=== PATIENT | male | born 1935 | race Hispanic/Latino ===

== ENCOUNTER → 2020-02-29 | Outpatient (CLI) | payer MEDICARE ==
[~2020-02-29] VITALS: Ht 165.1 cm; Wt 66.0 kg
[~2020-02-29] MED LIST: ALPR0.25 PO; CEFTRIAXONE SODIUM 1 GM IVP SCH; FINA5TAB41 PO; LEVO50TA11 PO; PRAV10TA39 PO; SERT50TA PO; TAMS-1 PO
[2020-02-29 14:14] LABS: BASOPHILS % (AUTO) 0.4 % (0.0-5.0); EOSINOPHILS % (AUTO) 0.9 % (0.0-8.0); HEMATOCRIT 40.7 % (42-54); LYMPHOCYTES % (AUTO) 29.8 % (21.0-51.0); MEAN CORPUSCULAR HEMOGLOBIN 30.7 pg (27.0-33.0); MEAN CORPUSCULAR HGB CONC 34.9 g/dL (32.0-36.0); MEAN CORPUSCULAR VOLUME 87.9 fL (79-99); MONOCYTES % (AUTO) 6.5 % (3.0-13.0); NEUTROPHILS % (AUTO) 62.1 % (40.0-77.0); PLATELET COUNT (AUTO) 338 K/uL (130-400); RED BLOOD CELL COUNT(AUTO) 4.63 MIL/uL (4.50-6.20); RED CELL DISTRIBUTION WIDTH 13.3 % (11.0-15.5); WHITE BLOOD COUNT (AUTO) 6.9 K/uL (4.8-10.8)
[2020-02-29 14:33] LABS: INR 0.99 (0.85-1.15); PARTIAL THROMBOPLASTIN TIME 30.8 SEC (26.3-35.5); PROTHROMBIN TIME 10.7 SEC (9.6-11.6)
[2020-02-29 14:35] LABS: APPEARANCE,URINE Clear (CLEAR); BILIRUBIN,URINE Negative (NEGATIVE); COLOR,URINE Yellow (YELLOW); GLUCOSE, URINE (UA) Negative (NEGATIVE); KETONES,URINE Trace mg/dL (NEGATIVE); LEUKOCYTE ESTERASE ,URINE Small (NEGATIVE); NITRATE,URINE Negative (NEGATIVE); OCCULT BLOOD,URINE Negative (NEGATIVE); PROTEIN,URINE Negative (NEGATIVE)
[2020-02-29 15:02] LABS: CREATININE 0.8 mg/dL (0.5-1.5); POTASSIUM 3.9 mmol/L (3.5-5.1)
[2020-02-29 15:08] LABS: BACTERIA,URINE Many /HPF (None Seen)
[2020-02-29 15:09] LABS: MUCUS,URINE Few LPF (None Seen); SQUAMOUS EPITHELIAL CELL,UR Few /HPF (0-2)
--- NOTE | 2020-03-05 10:30 | NUR ---
REPORT CALLED [facility] WITH DR PATRICIA AND INFORMED OF ABNORMAL URINE AND CULTURE. PT WAS STARTED ON L[facility]IN SO MD WILL PROCEED WITH SURGERY
--- NOTE | 2020-03-05 10:33 | NUR ---
RE: ABNORMAL URINE CULTURE FAXED URINALYSIS AND CULTURE SUSCEPTIBILITIES REPORT TO DR PATRICIA'S OFFICE FOR REVIEW, WILL WAIT FOR ANY NEW ORDERS/RESPONSE FROM DR PATRICIA.
[2020-03-05 11:08] VITALS: BP 108/66
--- NOTE | 2020-03-05 14:06 | NUR ---
RE: ABNORMAL EKG REPORTED EKG TO DR LEW, NO NEW ORDERS RECEIVED. MAY PROCEED WITH SCHEDULED PROCEDURE.
== END ==
LOC: DAH 10:00 → EDSTATUS 12:00
PROVIDERS: ATTEND Urology
DX: Z01.818 Encounter for other preprocedural examination (principal); N40.1 Benign prostatic hyperplasia with lower urinary tract symptoms; Z11.59 Encounter for screening for other viral diseases; I45.10 Unspecified right bundle-branch block; Z79.01 Long term (current) use of anticoagulants
CPT/HCPCS: 36415; 71045; 80048; 81001; 85025; 85610; 85730; 87077; 87088; 87186; 93005; A6260; U0003

== ENCOUNTER 2020-04-24 07:35 | Day surgery (SDC) | payer MEDICARE ==
[2020-04-18 12:09] LABS: BASOPHILS % (AUTO) 0.5 % (0.0-5.0); EOSINOPHILS % (AUTO) 1.9 % (0.0-8.0); HEMATOCRIT 43.7 % (42-54); LYMPHOCYTES % (AUTO) 26.3 % (21.0-51.0); MEAN CORPUSCULAR HGB CONC 35.2 g/dL (32.0-36.0); MEAN CORPUSCULAR VOLUME 87.9 fL (79-99); PLATELET COUNT (AUTO) 381 K/uL (130-400); RED BLOOD CELL COUNT(AUTO) 4.97 MIL/uL (4.50-6.20); RED CELL DISTRIBUTION WIDTH 13.2 % (11.0-15.5); WHITE BLOOD COUNT (AUTO) 6.5 K/uL (4.8-10.8)
[2020-04-18 12:23] LABS: CREATININE 0.9 mg/dL (0.5-1.5); POTASSIUM 4.5 mmol/L (3.5-5.1)
[2020-04-18 12:25] LABS: INR 0.94 (0.85-1.15); PARTIAL THROMBOPLASTIN TIME 30.6 SEC (26.3-35.5); PROTHROMBIN TIME 10.2 SEC (9.6-11.6)
[2020-04-18 13:33] LABS: APPEARANCE,URINE Cloudy (CLEAR); BILIRUBIN,URINE Negative (NEGATIVE); COLOR,URINE Yellow (YELLOW); GLUCOSE, URINE (UA) Negative (NEGATIVE); KETONES,URINE Negative (NEGATIVE); LEUKOCYTE ESTERASE ,URINE Small (NEGATIVE); NITRATE,URINE Negative (NEGATIVE); OCCULT BLOOD,URINE Negative (NEGATIVE); PH,URINE 7.5 (5.0-8.0); PROTEIN,URINE Negative (NEGATIVE)
[2020-04-18 13:38] LABS: AMORPHOUS SEDIMENT,UR Moderate /LPF (None Seen); BACTERIA,URINE Few /HPF (None Seen); RBC,URINE 0-1 /HPF (0-1); SQUAMOUS EPITHELIAL CELL,UR Rare /HPF (0-2); WBC,URINE 0-1 /HPF (0-1)
[2020-04-23 12:16] VITALS: BP 102/67
[~2020-04-24] VITALS: Ht 167.6 cm; Wt 62.3 kg
[2020-04-24] VITALS (22 sets, daily range): BP systolic 131–152; BP diastolic 37–72
[~2020-04-24 07:35] MED LIST changes: +GENTAMICIN SULFATE 320 MG in SODIUM CHLORIDE 0.9% 100 ML IV SCH; -SERT50TA PO
--- NOTE | 2020-04-24 08:10 | NUR ---
PREOP PT ARRIVED VIA W/C WITH DAUGHTER AT SIDE. PT IN NO DISTRESS. PT AND FAMILY ORIENTED TO ROOM AND CALL LIGHT. WILL CONTINUE TO MONITOR PT.
[2020-04-24] MEDS ORDERED: GENTAMICIN 80 MG/NS 100 ML PB 0 ML IV ONE (08:35)
[2020-04-24] MEDS ORDERED: LACTATED RINGERS 1000ML 1,000 ML IV ONE (08:37)
[2020-04-24] MEDS ORDERED: LIDOCAINE PF 2% 5ML ABBOJECT ONE (09:19)
[2020-04-24] MEDS ORDERED: ONDANSETRON HCL 4 MG/2 ML VIAL ONE (09:19)
[2020-04-24] MEDS ORDERED: PROPOFOL 10 MG/ML 20ML VIAL IV ONE (09:19)
[2020-04-24] MEDS ORDERED: DEXAMETHASONE SOD PHOSPHATE 10MG/ML 1ML VIAL ONE (09:19)
[2020-04-24] MEDS ORDERED: MIDAZOLAM HCL 1 MG/ML 2ML VIAL ONE (09:19)
[2020-04-24] MEDS ORDERED: SUCCINYLCHOLINE 200MG/10ML SYR ONE (09:19)
[2020-04-24] MEDS ORDERED: FENTANYL CITRATE PF 50 MCG/1 ML 2ML VIAL ONE (09:19)
[2020-04-24] MEDS ORDERED: LEVAQUIN PO (09:25)
[2020-04-24] MEDS ORDERED: DONE10TA43 PO (09:25)
[2020-04-24] MEDS ORDERED: ROCURONIUM 10MG/1ML SYR 10 MG/ML ML ONE (09:29)
--- NOTE | 2020-04-24 09:32 | NUR ---
REPORT HANDED OFF CARE TO YENNIFER SILVER RN FROM [facility] WITH [facility] Addendum: 04/24/20 at 0933 by ROSEMARIE VALDEZ RN RN WRONG PT CHARTING
--- NOTE | 2020-04-24 09:33 | NUR ---
REPORT HANDED OFF CARE TO YENNIFER SILVER RN FROM [facility] Addendum: 04/24/20 at 0935 by ROSEMARIE VALDEZ RN RN WRONG PT
[2020-04-24] MEDS ORDERED: EPHEDRINE SULFATE 50 MG/ML AMPULE ONE (09:36)
[2020-04-24] MEDS ORDERED: GLYCOPYRROLATE 1 MG/5 ML SYRINGE ONE (09:41)
[2020-04-24] MEDS ORDERED: NEOSTIGMINE 5MG/5ML SYR IV ONE (10:35)
--- NOTE | 2020-04-24 12:05 | NUR ---
ASSESSMENT RECEIVED PT ROM PACU TATIANA DE OLIVEIRA. PT [id number]. DAUGHTER AT BEDSIDE. PT HAS DEMENTIA. 20 FR ROCHA CATH DRAINING TO GRAVITY AT BEDSIDE WITH 300ML OF CLEAR YELLOW URINE. PT DENIES ANY DISCOMFORT AT THIS TIME.
--- NOTE | 2020-04-24 12:50 | NUR ---
EDUCATION PTS DAUGHTER INSTRUCTED ON CHANGING ROCHA BAG TO LEG BAG USING ASEPTIC TECHNIQUE. PT'S DAUGHTER VERBALIZED UNDERSTANDING. INSTRUCTED ON IMPORTANCE OF KEEPING ASEPTIC TECHNIQUE. PTS DAUGHTER VERBALIZED UNDERSTANDING. PRESCRIPTION GIVEN TO DAUGHTER.
== END 2020-04-24 12:55 | disposition home or self-care (01) ==
LOC: DAH 07:35
PROVIDERS: ATTEND Urology
DX: N40.1 Benign prostatic hyperplasia with lower urinary tract symptoms (principal); N39.0 Urinary tract infection, site not specified; Z79.899 Other long term (current) drug therapy; Z20.828 Contact with and (suspected) exposure to other viral communicable diseases; Z79.01 Long term (current) use of anticoagulants
CPT/HCPCS: 36415; 52648; 71045; 80048; 81001; 85025; 85610; 85730; 87077; 87088; 87186; 93005; A4213; A4215; A4221; A4222; A4223; A4335; A4354; A4358 ×2; A4600; A4663; A6260; C9803; J0330; J0696; J1100; J1580; J2001; J2250; J2405; J2704; J2710; J3010; J3490 ×2; J7030 ×2; J7120 ×2; U0003

== ENCOUNTER → 2020-05-22 | Outpatient (CLI) | payer MEDICARE ==
[~2020-05-22] MED LIST changes: -CEFTRIAXONE SODIUM 1 GM IVP SCH; +DONE10TA43 PO; -GENTAMICIN SULFATE 320 MG in SODIUM CHLORIDE 0.9% 100 ML IV SCH; +LEVAQUIN PO
== END | disposition home or self-care (01) ==
LOC: LAB 10:55
PROVIDERS: ATTEND Internal Medicine Gastroenterology
DX: R10.10 Upper abdominal pain, unspecified (principal); R63.4 Abnormal weight loss
CPT/HCPCS: 36415; 80053; 85025

== ENCOUNTER 2020-07-13 09:05 | Emergency (ER) | payer MEDICARE ==
[2020-07-13 09:59] LABS: BASOPHILS % (AUTO) 0.3 % (0.0-5.0); HEMATOCRIT 32.3 % (42-54); LYMPHOCYTES % (AUTO) 8.2 % (21.0-51.0); MEAN CORPUSCULAR HEMOGLOBIN 30.4 pg (27.0-33.0); MEAN CORPUSCULAR VOLUME 86.8 fL (79-99); NEUTROPHILS % (AUTO) 78.3 % (40.0-77.0); PLATELET COUNT (AUTO) 374 K/uL (130-400); RED BLOOD CELL COUNT(AUTO) 3.72 MIL/uL (4.50-6.20); RED CELL DISTRIBUTION WIDTH 13.1 % (11.0-15.5); WHITE BLOOD COUNT (AUTO) 10.1 K/uL (4.8-10.8)
[2020-07-13 10:06] LABS: CREATININE 0.8 mg/dL (0.5-1.5); POTASSIUM 3.6 mmol/L (3.5-5.1)
[2020-07-13] MEDS ORDERED: LACTATED RINGERS 1000ML 1,000 ML IV ONE (10:31)
[2020-07-13 10:38] LABS: APPEARANCE,URINE Clear (CLEAR); BILIRUBIN,URINE Small (NEGATIVE); COLOR,URINE Dark Yellow (YELLOW); GLUCOSE, URINE (UA) 500 mg/dL (NEGATIVE); KETONES,URINE Negative (NEGATIVE); LEUKOCYTE ESTERASE ,URINE Moderate (NEGATIVE); NITRATE,URINE Negative (NEGATIVE); OCCULT BLOOD,URINE Moderate (NEGATIVE); PROTEIN,URINE POS 2+ mg/dL (NEGATIVE)
[2020-07-13 10:50] LABS: BACTERIA,URINE Rare /HPF (None Seen); RBC,URINE 26-50 /HPF (0-1); SQUAMOUS EPITHELIAL CELL,UR 0-2 /HPF (0-2); WBC,URINE 51-100 /HPF (0-1)
[2020-07-13] MEDS ORDERED: LEVOFLOXACIN 500 MG TABLET ONE (11:29)
[2020-07-13] MEDS ORDERED: CEFTRIAXONE SODIUM 1 GM ONE (11:30)
== END 2020-07-13 13:00 | disposition home or self-care (01) ==
LOC: EDH 09:05
DX: N39.0 Urinary tract infection, site not specified (principal); T83.098A Other mechanical complication of other urinary catheter, initial encounter; E86.0 Dehydration; E46 Unspecified protein-calorie malnutrition; G30.9 Alzheimer's disease, unspecified; F02.80 Dementia in other diseases classified elsewhere, unspecified severity, without behavioral disturbance, psychotic disturbance, mood disturbance, and anxiety
CPT/HCPCS: 36415; 80048; 81001; 85025; 87088; 96361; 96374; 99283; J0696; J7120

== ENCOUNTER 2024-04-10 15:56 | Inpatient (IN) | payer MEDICARE ==
[~2024-04-10] VITALS: Ht 160 cm; Wt 69.1 kg
[2024-04-10] MEDS: ketOROlac 30MG VIAL (30MG/ML) IVP ONE (17:25)
[2024-04-10] MEDS: teTANUS/diphthERIA TOXOID [ADULT] 0.5 ML VIAL IM ONE (17:30)
[2024-04-10 17:37] LABS: BASOPHILS # (AUTO) 0.02 K/uL (0.00-0.20); BASOPHILS % (AUTO) 0.2 % (0.0-5.0); EOSINOPHILS # (AUTO) 0.02 K/uL (0.00-0.70); EOSINOPHILS % (AUTO) 0.2 % (0.0-8.0); HEMATOCRIT 36.1 % (42-54); IMMATURE GRANULOCYTE ABSOLUTE 0.04 K/uL (0-1); LYMPHOCYTES # (AUTO) 1.1 K/uL (1.0-4.8); LYMPHOCYTES % (AUTO) 9.1 % (21.0-51.0); MEAN CORPUSCULAR HEMOGLOBIN 31.6 pg (27.0-33.0); MEAN CORPUSCULAR VOLUME 87.6 fL (79-99); MONOCYTES # (AUTO) 0.6 K/uL (0.1-1.0); MONOCYTES % (AUTO) 5.2 % (3.0-13.0); NEUTROPHILS # (AUTO) 10.4 K/uL (1.8-7.7); PLATELET COUNT (AUTO) 303 K/uL (130-400); RED BLOOD CELL COUNT(AUTO) 4.12 MIL/uL (4.50-6.20); RED CELL DISTRIBUTION WIDTH 13.7 % (11.0-15.5); WHITE BLOOD COUNT (AUTO) 12.3 K/uL (4.8-10.8)
[2024-04-10 17:42] LABS: CREATININE 0.8 mg/dL (0.5-1.3)
[2024-04-10 17:51] LABS: ALBUMIN 3.9 g/dL (3.5-5.0); BILIRUBIN,TOTAL 1.1 mg/dL (0.2-1.0); TOTAL PROTEIN, SERUM 7.3 g/dL (6.0-8.3)
[2024-04-10 17:53] LABS: INR 1.06 (0.85-1.15); PROTHROMBIN TIME 11.4 SEC (9.6-11.6)
[2024-04-10 17:54] LABS: PARTIAL THROMBOPLASTIN TIME 26.5 SEC (26.3-35.5)
[2024-04-10] MEDS ORDERED: HEParin 5,000 UNIT VIAL SQ SCH (18:00)
[2024-04-10] MEDS: 1/2 NS 1000ML 1,000 ML IV SCH (18:55)
[2024-04-10] MEDS: hydroMORPHone 0.5 MG SYG (0.5MG/0.5ML) IVP PRN (19:49)
[2024-04-10] MEDS: ONDANSETRON 4MG INJ IVP PRN (19:49)
[2024-04-10 21:40] VITALS: BP 149/67; PULSE 72; RESP 22; TEMP 97.9; O2SAT 96
[2024-04-10] MEDS ORDERED: ALPR0.5T8 PO (22:03)
[2024-04-10] MEDS ORDERED: TUME1CAP PO (22:03)
[2024-04-10] MEDS ORDERED: ASHW500C PO (22:03)
[2024-04-10] MEDS ORDERED: [UNRECOGNIZED DRUG - OTHER] PO (22:03)
[2024-04-10] MEDS ORDERED: LEVO88TA7 PO (22:03)
[2024-04-10 22:46] LABS: APPEARANCE,URINE CLEAR (CLEAR); BILIRUBIN,URINE NEGATIVE (NEGATIVE); COLOR,URINE YELLOW (YELLOW); GLUCOSE, URINE (UA) NEGATIVE (NEGATIVE); KETONES,URINE 5 mg/dL (NEGATIVE); LEUKOCYTE ESTERASE ,URINE NEGATIVE Leu/uL (NEGATIVE); NITRATE,URINE NEGATIVE (NEGATIVE); OCCULT BLOOD,URINE NEGATIVE (NEGATIVE); PROTEIN,URINE NEGATIVE (NEGATIVE); UROBILINOGEN,URINE 0.2 mg/dL (0.2-1.0)
[2024-04-10 22:54] LABS: ADD UA MICROSCOPIC YES
[2024-04-10 22:58] LABS: WBC,URINE 0-1 /HPF (0-1)
[2024-04-10 22:59] LABS: BACTERIA,URINE None Seen /HPF (None Seen); MUCUS,URINE Rare LPF (None Seen); SQUAMOUS EPITHELIAL CELL,UR Rare /HPF (0-2)
[2024-04-11] VITALS (25 sets, daily range): BP systolic 107–143; BP diastolic 39–75; PULSE 60–77; RESP 15–20; TEMP 97.2–98.7; O2SAT 98–99
[2024-04-11 05:38] LABS: BASOPHILS # (AUTO) 0.02 K/uL (0.00-0.20); BASOPHILS % (AUTO) 0.2 % (0.0-5.0); EOSINOPHILS # (AUTO) 0.07 K/uL (0.00-0.70); EOSINOPHILS % (AUTO) 0.9 % (0.0-8.0); HEMATOCRIT 32.4 % (42-54); IMMATURE GRANULOCYTE ABSOLUTE 0.02 K/uL (0-1); LYMPHOCYTES # (AUTO) 0.9 K/uL (1.0-4.8); LYMPHOCYTES % (AUTO) 11.3 % (21.0-51.0); MEAN CORPUSCULAR HEMOGLOBIN 31.1 pg (27.0-33.0); MEAN CORPUSCULAR HGB CONC 35.2 g/dL (32.0-36.0); MEAN CORPUSCULAR VOLUME 88.3 fL (79-99); MONOCYTES # (AUTO) 0.8 K/uL (0.1-1.0); MONOCYTES % (AUTO) 9.8 % (3.0-13.0); NEUTROPHILS # (AUTO) 6.2 K/uL (1.8-7.7); NEUTROPHILS % (AUTO) 77.6 % (40.0-77.0); PLATELET COUNT (AUTO) 240 K/uL (130-400); RED BLOOD CELL COUNT(AUTO) 3.67 MIL/uL (4.50-6.20); RED CELL DISTRIBUTION WIDTH 13.5 % (11.0-15.5); WHITE BLOOD COUNT (AUTO) 8.1 K/uL (4.8-10.8)
[2024-04-11 05:54] LABS: ALBUMIN 3.2 g/dL (3.5-5.0); BILIRUBIN,TOTAL 1.5 mg/dL (0.2-1.0); CREATININE 0.8 mg/dL (0.5-1.3); POTASSIUM 3.7 mmol/L (3.5-5.1); TOTAL PROTEIN, SERUM 6.2 g/dL (6.0-8.3)
[2024-04-11] MEDS: POTASSIUM CHLORIDE 20MEQ/100ML 100 ML IV PRN (07:31)
[2024-04-11] MEDS ORDERED: dexaMETHasone SOD PHOSPHATE 10MG/ML 1ML VIAL ONE (10:56)
[2024-04-11] MEDS ORDERED: ONDANSETRON 4MG INJ ONE (10:56)
[2024-04-11] MEDS ORDERED: LIDOCAINE PF 100MG/5ML (2%) SYRINGE 5ML ONE (10:56)
[2024-04-11] MEDS ORDERED: FENTanyl CITRate PF 50 MCG/1 ML 2ML VIAL ONE (10:57)
[2024-04-11] MEDS ORDERED: proPOFol 10 MG/ML 20ML VIAL IV ONE (10:57)
[2024-04-11] MEDS ORDERED: rocuRONium bROMide 10MG/1ML 5ML VL ONE (10:57)
[2024-04-11] MEDS ORDERED: GLYCOPYRROLATE 0.2 MG/ML 5 ML VIAL ONE (10:57)
[2024-04-11] MEDS ORDERED: ePHEDrine SULFate 50 MG/ML AMPULE ONE (11:00)
[2024-04-11] MEDS ORDERED: TRANEXAMIC ACID 1000MG/10ML ONE (11:02)
[2024-04-11] MEDS ORDERED: ALBUMIN (HUMAN) 5% 250 ML IV ONE (11:06)
[2024-04-11] MEDS ORDERED: ROPivacaine 0.5% 5MG/ML 30ML ONE (11:06)
[2024-04-11] MEDS: ceFAZolin SODIUM 2 GM VIAL ONE (11:40)
[2024-04-11] MEDS: LACTATED RINGERS 1000ML 1,000 ML IV ONE (11:40)
[2024-04-11] MEDS: ceFAZolin SODIUM 2 GM VIAL IVPB ONE ×2 (12:00→19:24)
[2024-04-11] MEDS ORDERED: POTASSIUM CHLORIDE 20MEQ/100ML 100 ML IV PRN (14:00)
[2024-04-11] MEDS ORDERED: POTASSIUM CHLORIDE 10% ELIXIR 20 MEQ/15 ML UDCUP PO PRN (14:00)
[2024-04-11] MEDS ORDERED: CALCIUM CARB 500MG PO PRN (14:00)
[2024-04-11] MEDS ORDERED: FERROUS FUMARATE 324 MG TABLET PO PRN (14:00)
[2024-04-11] MEDS ORDERED: KCL 20 MEQ ERTAB PO PRN (14:00)
[2024-04-11] MEDS: acetaMINOPHEN 1,000 MG/100 ML VIAL IV ONE (14:38)
[2024-04-11] MEDS: ceFAZolin SODIUM 2 GM VIAL IVPB SCH (14:44)
[2024-04-11] MEDS: 0.9%NACL 1000ML 1,000 ML IV SCH (14:44)
[2024-04-11] MEDS: ketOROlac 15MG/ML VIAL (15MG/ML) IV PRN (14:52)
[2024-04-11] MEDS: KCL 20 MEQ ERTAB PO PRN (17:08)
[2024-04-11] MEDS: traMADol HCL 50 MG TABLET PO PRN (17:09)
[2024-04-12] VITALS (7 sets, daily range): BP systolic 104–136; BP diastolic 40–62; PULSE 64–77; RESP 16–19; TEMP 98.1–98.5; O2SAT 97–98
[2024-04-12] MEDS: HALOPERIDOL INJ 5 MG/ML VIAL IV ONE (02:18)
[2024-04-12] MEDS: HALOPERIDOL INJ 5 MG/ML VIAL IM ONE (02:18)
[2024-04-12] MEDS: ceFAZolin SODIUM 2 GM VIAL IVPB SCH (03:24)
[2024-04-12 03:52] LABS: BASOPHILS # (AUTO) 0.01 K/uL (0.00-0.20); BASOPHILS % (AUTO) 0.1 % (0.0-5.0); HEMATOCRIT 31.2 % (42-54); IMMATURE GRANULOCYTE ABSOLUTE 0.04 K/uL (0-1); LYMPHOCYTES % (AUTO) 8.3 % (21.0-51.0); MEAN CORPUSCULAR HEMOGLOBIN 31.3 pg (27.0-33.0); MEAN CORPUSCULAR HGB CONC 35.3 g/dL (32.0-36.0); MEAN CORPUSCULAR VOLUME 88.6 fL (79-99); MONOCYTES % (AUTO) 8.8 % (3.0-13.0); NEUTROPHILS # (AUTO) 9.7 K/uL (1.8-7.7); NEUTROPHILS % (AUTO) 82.5 % (40.0-77.0); PLATELET COUNT (AUTO) 242 K/uL (130-400); RED BLOOD CELL COUNT(AUTO) 3.52 MIL/uL (4.50-6.20); RED CELL DISTRIBUTION WIDTH 13.3 % (11.0-15.5); WHITE BLOOD COUNT (AUTO) 11.8 K/uL (4.8-10.8)
[2024-04-12 04:08] LABS: INR 1.09 (0.85-1.15); PROTHROMBIN TIME 11.7 SEC (9.6-11.6)
[2024-04-12 04:14] LABS: ALBUMIN 3.2 g/dL (3.5-5.0); CREATININE 0.9 mg/dL (0.5-1.3); POTASSIUM 3.9 mmol/L (3.5-5.1); TOTAL PROTEIN, SERUM 6.3 g/dL (6.0-8.3)
[2024-04-12] MEDS: polyETHYLene GLYCol 3350 17 GM POWD.PACK PO SCH (08:41)
[2024-04-12] MEDS: ASPIRIN 325MG EC TAB PO SCH (08:41)
[2024-04-12] MEDS: PSYLLIUM SEED 1 EACH PACKET PO SCH (12:35)
[2024-04-12] MEDS: oLANZapine 5 MG TAB PO SCH (20:00)
[2024-04-13] VITALS (12 sets, daily range): BP systolic 76–134; BP diastolic 45–65; PULSE 70–91; RESP 16–18; TEMP 98–99.9; O2SAT 98
[2024-04-13 05:15] LABS: BASOPHILS # (AUTO) 0.03 K/uL (0.00-0.20); BASOPHILS % (AUTO) 0.2 % (0.0-5.0); EOSINOPHILS # (AUTO) 0.03 K/uL (0.00-0.70); EOSINOPHILS % (AUTO) 0.2 % (0.0-8.0); HEMATOCRIT 31.8 % (42-54); IMMATURE GRANULOCYTE ABSOLUTE 0.05 K/uL (0-1); LYMPHOCYTES # (AUTO) 0.9 K/uL (1.0-4.8); LYMPHOCYTES % (AUTO) 7.5 % (21.0-51.0); MEAN CORPUSCULAR HEMOGLOBIN 31.4 pg (27.0-33.0); MEAN CORPUSCULAR HGB CONC 35.2 g/dL (32.0-36.0); MEAN CORPUSCULAR VOLUME 89.1 fL (79-99); MONOCYTES % (AUTO) 8.2 % (3.0-13.0); NEUTROPHILS # (AUTO) 10.2 K/uL (1.8-7.7); NEUTROPHILS % (AUTO) 83.5 % (40.0-77.0); PLATELET COUNT (AUTO) 236 K/uL (130-400); RED BLOOD CELL COUNT(AUTO) 3.57 MIL/uL (4.50-6.20); RED CELL DISTRIBUTION WIDTH 13.7 % (11.0-15.5); WHITE BLOOD COUNT (AUTO) 12.3 K/uL (4.8-10.8)
[2024-04-13 05:29] LABS: INR 1.03 (0.85-1.15); PROTHROMBIN TIME 11.1 SEC (9.6-11.6)
[2024-04-13 05:46] LABS: CREATININE 0.8 mg/dL (0.5-1.3); POTASSIUM 3.5 mmol/L (3.5-5.1); TOTAL PROTEIN, SERUM 6.2 g/dL (6.0-8.3)
[2024-04-13] MEDS: PHENAZOPYRIDINE HCL 200 MG TABLET PO ONE (11:10)
[2024-04-13] MEDS ORDERED: BisaCODYL 5 MG TABLET.DR PO PRN (14:00)
[2024-04-13] MEDS: 0.9%NACL 1000ML 1,000 ML IV SCH (23:30)
[2024-04-13] MEDS: 0.9% NACL 500ML IV.SOLN 500 ML IV ONE (23:30)
[2024-04-13 23:48] LABS: BASOPHILS # (AUTO) 0.02 K/uL (0.00-0.20); BASOPHILS % (AUTO) 0.1 % (0.0-5.0); HEMATOCRIT 28.1 % (42-54); IMMATURE GRANULOCYTE ABSOLUTE 0.08 K/uL (0-1); LYMPHOCYTES # (AUTO) 0.8 K/uL (1.0-4.8); LYMPHOCYTES % (AUTO) 5.1 % (21.0-51.0); MEAN CORPUSCULAR HEMOGLOBIN 30.9 pg (27.0-33.0); MEAN CORPUSCULAR HGB CONC 34.5 g/dL (32.0-36.0); MEAN CORPUSCULAR VOLUME 89.5 fL (79-99); MONOCYTES % (AUTO) 6.6 % (3.0-13.0); NEUTROPHILS # (AUTO) 13.2 K/uL (1.8-7.7); NEUTROPHILS % (AUTO) 87.7 % (40.0-77.0); PLATELET COUNT (AUTO) 224 K/uL (130-400); RED BLOOD CELL COUNT(AUTO) 3.14 MIL/uL (4.50-6.20); RED CELL DISTRIBUTION WIDTH 13.8 % (11.0-15.5); WHITE BLOOD COUNT (AUTO) 15.1 K/uL (4.8-10.8)
[2024-04-14] VITALS (8 sets, daily range): BP systolic 94–136; BP diastolic 41–59; PULSE 68–89; RESP 12–19; TEMP 97.9–99.6; O2SAT 98–100
[2024-04-14 00:02] LABS: CREATININE 0.8 mg/dL (0.5-1.3); POTASSIUM 3.3 mmol/L (3.5-5.1)
[2024-04-14 00:06] LABS: ALBUMIN 2.2 g/dL (3.5-5.0); BILIRUBIN,TOTAL 1.1 mg/dL (0.2-1.0)
[2024-04-14 04:25] LABS: HEMATOCRIT 29.6 % (42-54); MEAN CORPUSCULAR HEMOGLOBIN 30.6 pg (27.0-33.0); MEAN CORPUSCULAR HGB CONC 34.5 g/dL (32.0-36.0); MEAN CORPUSCULAR VOLUME 88.9 fL (79-99); RED BLOOD CELL COUNT(AUTO) 3.33 MIL/uL (4.50-6.20); RED CELL DISTRIBUTION WIDTH 13.6 % (11.0-15.5)
[2024-04-14 04:35] LABS: INR 1.07 (0.85-1.15); PROTHROMBIN TIME 11.5 SEC (9.6-11.6)
[2024-04-14 04:50] LABS: CREATININE 0.7 mg/dL (0.5-1.3); POTASSIUM 3.3 mmol/L (3.5-5.1)
[2024-04-14] MEDS: POTASSIUM CHLORIDE 10% ELIXIR 20 MEQ/15 ML UDCUP PO PRN (08:21)
[2024-04-14] MEDS: DEXTROSE 5 % AND 0.9 % NACL 1,000 ML IV SCH (11:58)
[2024-04-14] MEDS: ZOSYN 3.375GM +NS 50ML IV SCH (13:49)
[2024-04-14] MEDS ORDERED: BisaCODYL 10 MG SUPP.RECT RC PRN (14:00)
[2024-04-15] VITALS (8 sets, daily range): BP systolic 96–136; BP diastolic 48–59; PULSE 72–91; RESP 18–20; TEMP 98.1–99.5; O2SAT 96–98
[2024-04-15] MEDS: ENOXAPARIN SODIUM 40 MG/0.4 ML SYRINGE SQ SCH (08:20)
[2024-04-15 11:14] LABS: BASOPHILS # (AUTO) 0.06 K/uL (0.00-0.20); BASOPHILS % (AUTO) 0.2 % (0.0-5.0); EOSINOPHILS # (AUTO) 0.01 K/uL (0.00-0.70); HEMATOCRIT 31.4 % (42-54); IMMATURE GRANULOCYTE ABSOLUTE 0.29 K/uL (0-1); LYMPHOCYTES % (AUTO) 3.9 % (21.0-51.0); MEAN CORPUSCULAR HEMOGLOBIN 31.2 pg (27.0-33.0); MEAN CORPUSCULAR HGB CONC 34.7 g/dL (32.0-36.0); MONOCYTES # (AUTO) 1.3 K/uL (0.1-1.0); MONOCYTES % (AUTO) 5.2 % (3.0-13.0); NEUTROPHILS # (AUTO) 21.9 K/uL (1.8-7.7); NEUTROPHILS % (AUTO) 89.5 % (40.0-77.0); PLATELET COUNT (AUTO) 339 K/uL (130-400); RED BLOOD CELL COUNT(AUTO) 3.49 MIL/uL (4.50-6.20); RED CELL DISTRIBUTION WIDTH 13.7 % (11.0-15.5); WHITE BLOOD COUNT (AUTO) 24.4 K/uL (4.8-10.8)
[2024-04-15 11:22] LABS: CREATININE 0.7 mg/dL (0.5-1.3); POTASSIUM 3.3 mmol/L (3.5-5.1)
[2024-04-15] MEDS: acetaMINOPHEN 500 MG TABLET PO PRN (11:58)
[2024-04-16] VITALS (7 sets, daily range): BP systolic 102–139; BP diastolic 49–59; PULSE 62–79; RESP 17–20; TEMP 97.1–98.2; O2SAT 98
[2024-04-16 05:31] LABS: BASOPHILS # (AUTO) 0.04 K/uL (0.00-0.20); BASOPHILS % (AUTO) 0.2 % (0.0-5.0); EOSINOPHILS # (AUTO) 0.11 K/uL (0.00-0.70); EOSINOPHILS % (AUTO) 0.6 % (0.0-8.0); HEMATOCRIT 26.9 % (42-54); IMMATURE GRANULOCYTE ABSOLUTE 0.21 K/uL (0-1); LYMPHOCYTES # (AUTO) 0.9 K/uL (1.0-4.8); LYMPHOCYTES % (AUTO) 5.1 % (21.0-51.0); MEAN CORPUSCULAR HEMOGLOBIN 30.6 pg (27.0-33.0); MEAN CORPUSCULAR HGB CONC 34.6 g/dL (32.0-36.0); MEAN CORPUSCULAR VOLUME 88.5 fL (79-99); MONOCYTES # (AUTO) 1.1 K/uL (0.1-1.0); MONOCYTES % (AUTO) 6.4 % (3.0-13.0); NEUTROPHILS # (AUTO) 15.4 K/uL (1.8-7.7); NEUTROPHILS % (AUTO) 86.5 % (40.0-77.0); PLATELET COUNT (AUTO) 310 K/uL (130-400); RED BLOOD CELL COUNT(AUTO) 3.04 MIL/uL (4.50-6.20); RED CELL DISTRIBUTION WIDTH 13.6 % (11.0-15.5); WHITE BLOOD COUNT (AUTO) 17.8 K/uL (4.8-10.8)
[2024-04-16 05:50] LABS: CREATININE 0.6 mg/dL (0.5-1.3); POTASSIUM 3.3 mmol/L (3.5-5.1)
[2024-04-16 20:04] LABS: CREATININE 0.7 mg/dL (0.5-1.3); POTASSIUM 4.1 mmol/L (3.5-5.1)
[2024-04-16 20:08] LABS: ALBUMIN 1.9 g/dL (3.5-5.0); BILIRUBIN,TOTAL 0.7 mg/dL (0.2-1.0); MAGNESIUM 2.1 mg/dL (1.80-2.40); TOTAL PROTEIN, SERUM 5.3 g/dL (6.0-8.3)
[2024-04-16] MEDS: PANTOPRAZOLE 40 MG/VIAL IVP SCH (21:37)
[2024-04-17 04:39] VITALS: BP 107/55; PULSE 61; RESP 17; TEMP 98.3
[2024-04-17 04:44] LABS: BASOPHILS # (AUTO) 0.03 K/uL (0.00-0.20); BASOPHILS % (AUTO) 0.3 % (0.0-5.0); EOSINOPHILS # (AUTO) 0.23 K/uL (0.00-0.70); EOSINOPHILS % (AUTO) 2.3 % (0.0-8.0); HEMATOCRIT 26.6 % (42-54); IMMATURE GRANULOCYTE ABSOLUTE 0.29 K/uL (0-1); LYMPHOCYTES # (AUTO) 1.3 K/uL (1.0-4.8); LYMPHOCYTES % (AUTO) 12.9 % (21.0-51.0); MEAN CORPUSCULAR HEMOGLOBIN 30.5 pg (27.0-33.0); MEAN CORPUSCULAR HGB CONC 34.2 g/dL (32.0-36.0); MEAN CORPUSCULAR VOLUME 89.3 fL (79-99); MONOCYTES % (AUTO) 9.6 % (3.0-13.0); NEUTROPHILS # (AUTO) 7.1 K/uL (1.8-7.7); PLATELET COUNT (AUTO) 329 K/uL (130-400); RED BLOOD CELL COUNT(AUTO) 2.98 MIL/uL (4.50-6.20); RED CELL DISTRIBUTION WIDTH 13.9 % (11.0-15.5); WHITE BLOOD COUNT (AUTO) 9.9 K/uL (4.8-10.8)
[2024-04-17 05:00] LABS: ALBUMIN 1.9 g/dL (3.5-5.0); BILIRUBIN,TOTAL 0.7 mg/dL (0.2-1.0); CREATININE 0.6 mg/dL (0.5-1.3); MAGNESIUM 2.1 mg/dL (1.80-2.40); POTASSIUM 3.9 mmol/L (3.5-5.1); TOTAL PROTEIN, SERUM 5.3 g/dL (6.0-8.3)
[2024-04-17 08:00] VITALS: BP 110/57; PULSE 71; RESP 16; TEMP 98.1; O2SAT 98
[2024-04-17 12:00] VITALS: BP 127/56; PULSE 76; RESP 16; TEMP 98.2
== END 2024-04-17 13:30 | DRG 521 ==
LOC: EDH 15:56 → EDHIP 17:39 → 4AH 21:29
PROVIDERS: ADMIT Internal Medicine; ATTEND Internal Medicine
PROC: 0SRR0JZ Replacement of Right Hip Joint, Femoral Surface with Synthetic Substitute, Open Approach (ICD-10-PCS; principal; 2024-04-11 11:29)
DX: S72.001A Fracture of unspecified part of neck of right femur, initial encounter for closed fracture (principal); A41.9 Sepsis, unspecified organism; N39.0 Urinary tract infection, site not specified; F05 Delirium due to known physiological condition; W18.30XA Fall on same level, unspecified, initial encounter; N40.1 Benign prostatic hyperplasia with lower urinary tract symptoms; D64.9 Anemia, unspecified; E03.9 Hypothyroidism, unspecified; X58.XXXA Exposure to other specified factors, initial encounter; R33.8 Other retention of urine; D72.829 Elevated white blood cell count, unspecified; F03.90 Unspecified dementia, unspecified severity, without behavioral disturbance, psychotic disturbance, mood disturbance, and anxiety; Z79.899 Other long term (current) drug therapy; Z79.2 Long term (current) use of antibiotics; Y93.89 Activity, other specified; Y92.89 Other specified places as the place of occurrence of the external cause; Y99.8 Other external cause status
CPT/HCPCS: 36415; 71045; 72170; 73502; 73503; 73562; 80048; 80053; 81001; 83735; 84484; 85025; 85027; 85610; 85730; 86156; 86850; 86870; 86900; 86901; 86922; 87040; 87086; 87186; 90471; 90714; 92610; 93005; 96374; C1776; G0378; J1100; J1170; J1630; J1650; J1885; J2001; J2405; J2470; J2543; J2704; J2795; J3010; J3480; J3490; J7030; J7120; P9045; A4213; A4216; A4222; A4223; A4649; A4930; A6255; G0168; J0690